=== PATIENT | male | born 1990 | race Caucasian/White ===

== ENCOUNTER 2018-03-03 01:00 | Emergency (ER) | payer SELFPAY ==
[~2018-03-03] VITALS: Ht 185.4 cm; Wt 81.6 kg
[2018-03-03 01:08] VITALS: Ht 185.4 cm; Wt 81.6 kg
[2018-03-03 02:29] VITALS: BP 120/74
== END 2018-03-03 02:29 | disposition home or self-care (01) ==
LOC: ED 01:00
DX: L02.214 Cutaneous abscess of groin (principal)
CPT/HCPCS: J2001